=== PATIENT | female | born 1960 | race Caucasian/White ===

== ENCOUNTER 2022-01-20 11:29 | Day surgery (SDC) | payer BC ==
[~2022-01-20 11:29] MED LIST: Acetaminophen 325 MG Tab PO SCH; Lactated Ringers 1,000 ML IV SCH; Lactated Ringers 1,000 ML ONE; Lidocaine 1%/Sod Bicarbonate in NS 8.4% 1 ML Syringe IDERM PRN; Midazolam 1 MG/ML 2 ML SDV ONE; Morphine 8 MG, EPINEPHrine 0.3 MG, Cefuroxime 750 MG, Ketorolac 30 MG, Sodium Chloride ... PRN; Pregabalin 25 MG Cap PO SCH; Propofol 200 MG/20 ML SDV ONE; Sodium Chloride 0.9% 10 ML Syringe FLUSH PRN; Sodium Chloride 0.9% 10 ML Syringe FLUSH SCH; ceFAZolin 1 GM Vial ONE; fentaNYL 100 MCG/2 ML SDV ONE; oxyCODONE ER 10 MG TAB.ER PO SCH
[2022-01-20] MEDS ORDERED: Vancomycin 1 GM SDV ONE (11:30)
[2022-01-20] MEDS ORDERED: Scopolamine 1.5 MG Transdermal Patch TOP ONE (11:55)
[2022-01-20] MEDS ORDERED: Ropivacaine 0.5% 5 MG/ML 30 ML SDV ONE (11:58)
[2022-01-20] MEDS ORDERED: EPINEPHrine 1 MG/ML SDV ONE (11:58)
[2022-01-20] MEDS ORDERED: Ondansetron 4 MG/2 ML SDV ONE (12:34)
[2022-01-20] MEDS ORDERED: Dexamethasone 4 MG/ML 5 ML MDV ONE (12:34)
[2022-01-20] MEDS ORDERED: fentaNYL 100 MCG/2 ML SDV ONE (13:04)
[2022-01-20] MEDS ORDERED: Midazolam 1 MG/ML 2 ML SDV ONE (13:05)
[2022-01-20] MEDS ORDERED: HYDROmorphone 0.5 MG/0.5 ML Syringe IVPUSH PRN (13:22)
[2022-01-20] MEDS ORDERED: Ondansetron 4 MG/2 ML SDV IVPUSH PRN (13:22)
[2022-01-20] MEDS ORDERED: fentaNYL 100 MCG/2 ML SDV IVPUSH PRN (13:22)
[2022-01-20] MEDS ORDERED: Ondansetron 4 MG Tab.DIS PO PRN (13:30)
[2022-01-20] MEDS ORDERED: oxyCODONE 5 MG Tab PO PRN (13:30)
[2022-01-20] MEDS ORDERED: Cyclobenzaprine 10 MG Tab PO PRN (13:30)
== END 2022-01-20 17:20 | disposition home or self-care (01) ==
LOC: JD.SDS 11:29
PROVIDERS: ATTEND Orthopaedic Surgery
DX: M17.12 Unilateral primary osteoarthritis, left knee (principal); E03.9 Hypothyroidism, unspecified; H81.03 Meniere's disease, bilateral; E78.5 Hyperlipidemia, unspecified; Z79.899 Other long term (current) drug therapy; Z90.49 Acquired absence of other specified parts of digestive tract; Z98.890 Other specified postprocedural states
CPT/HCPCS: 27447; 73560; 97110; 97116; 97161; A9270; C1713; C1776; J0171; J0690; J0697; J1100; J1885; J2250; J2270; J2405; J2704; J2795; J3010; J3370; J7120; 01402; 64447; 76942